=== PATIENT | male | born 1970 | race Caucasian/White ===

== ENCOUNTER 2022-09-14 22:36 | Emergency (ER) | payer OTHER, SELFPAY ==
[2022-09-14 22:37] VITALS: BP 153/89; PULSE 65; RESP 19; TEMP 36.8; O2SAT 98; BMI 28.7
--- NOTE | 2022-09-14 23:05 | PC.NURSE ---
Dr. Green at BS to suture
--- NOTE | 2022-09-14 23:17 | HMH.EDWNDL ---
Discharge Plan Disposition Chief Complaint: Wound/Laceration Prescriptions Prescriptions: No Action No Known Home Medications Referrals Follow up/Referrals: Provider,Referral, MD [Primary Care Provider] - See instructions Clinical Impressions Clinical Impression: Laceration Instructions Patient Instructions: DI for Laceration Repair Discharge ED Provider: Norma (ED)Gustavo Wound/Laceration HPI General Chief Complaint: Wound/Laceration Stated Complaint: WC03/02@20:00Lac to R 2nd finger Time Seen by Provider: 09/14/22 23:17 Mode of Arrival: Ambulatory Source of Information: Patient and Medical Record Limitations: No Limitations Description of Symptoms (Recalled from ER Triage Doc. by RN): Pt c/o about 1 laceration to anterior right pointer finger. 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 Bleeding controlled. Denies any significant PMH. He is UTD on tetanus vaccine. History of Present Illness HPI narrative: lac rt index finger at work as noted above Onset (ago): hour(s) Extremity Location: Right: hand Place: work Patient tetanus UTD: Yes Context: accidental Associated symptoms: none Related Data Home Medications Medication Instructions Recorded Confirmed No Known Home Medications 09/14/22 09/14/22 Allergies Allergy/AdvReac Type Severity Reaction Status Date / Time No Known Allergies Allergy Verified 09/14/22 23:00 [facility] Disclaimer: The information contained in this section may have been updated after the patient was seen, as this information can be updated by other users. Social History Smoking Status: Never smoker alcohol intake: never current occupational status: employed Travel in the last 8 weeks: None ROS Obtained: Yes All systems reviewed & no additional complaints except as documented Physical Exam General General appearance: alert Head Head exam: normocephalic Eye Eye exam: Present PERRL and EOMI ENT ENT exam: Present mucous membranes moist Neck Neck exam: Present trachea midline Respiratory Respiratory exam: Absent respiratory distress Cardiovascular Cardiovascular exam: Present regular rate Expanded Upper Extremity Exam Right: Hand exam: Present laceration (1 cm distal lac - no fb noted and neurovascular ok ) Neuromotor exam: Normal wrist extension Vascular exam: Normal radial pulse Neurological Exam Neurological exam: Present alert, oriented X3 and CN II-XII intact; Absent motor sensory deficit Psychiatric Psychiatric exam: Present normal affect Skin Skin exam: Absent rash Medical Decision Making Medical Records Medical records reviewed: Yes I reviewed the patient's medical records. Ben Inquiry Pt receiving controlled substance: No Vital Signs: 09/14/22 22:37 Temperature 98.3 F Temperature Source Oral Pulse Rate [Right] 65 Respiratory Rate 19 Blood Pressure [Left Arm] 153/89 H Blood Pressure Mean [Left Arm] 110 Blood Pressure Source [Left Arm] Automatic Cuff 02 Sat by Pulse Oximetry 98 Oxygen Delivery Method Room Air Lab Data Lab results reviewed: Yes I reviewed the patient's lab results. Medical Decision Narrative: lac rt index finger at work and sutures and sutures out 10 days - workman comp forms completed Procedures Laceration Laceration 1: Site: finger Side (If applicable): right Size (cm): 1 Description: linear Depth: involves subcutaneous layer Local Anesthetic: lidocaine 1% Amount of anesthesia used (mL): 6 Pre-repair: deep structures intact Skin layer closed with: nylon Size (cm): 4-0 Number of sutures: 5 Technique: simple, interrupted Nerve Block Nerve Block 1: Time out performed: Yes Local Anesthetic: lidocaine 1% Amount of anesthesia used (mL): 6 Side: Right Nerve Blocks: digital
[2022-09-14 23:26] VITALS: BP 134/75; PULSE 69; RESP 17; TEMP 36.7; O2SAT 97
== END 2022-09-14 23:27 | disposition home or self-care (01) ==
PROVIDERS: Emergency Provider Emergency Medicine
DX: S61.210A Laceration without foreign body of right index finger without damage to nail, initial encounter (principal); W25.XXXA Contact with sharp glass, initial encounter; Y99.0 Civilian activity done for income or pay
CPT/HCPCS: 12001; 99283